=== PATIENT | female | born 1965 | race Caucasian/White ===

== ENCOUNTER 2017-03-27 04:44 | Day surgery (SDC) | payer SELFPAY ==
[~2017-03-27] VITALS: Ht 157.5 cm; Wt 58.0 kg
[~2017-03-27 04:44] MED LIST: BACLOFEN20 MG PO; IBU400 PO; LEVOTHYROXIN112 MCG PO; NEUR600 PO; NORV5 PO; TRAZ50 PO; TRILEPTAL600 MG PO
== END 2017-03-27 07:48 | disposition home or self-care (01) ==
LOC: SDC 04:44
PROVIDERS: Orthopaedic Surgery Orthopaedic Surgery of the Spine
PROC: 3E0R33Z Introduction of Anti-inflammatory into Spinal Canal, Percutaneous Approach (ICD-10-PCS; 2017-03-27)
PROC: B01BYZZ Fluoroscopy of Spinal Cord using Other Contrast (ICD-10-PCS; 2017-03-27)
PROC: 3E0R3BZ Introduction of Anesthetic Agent into Spinal Canal, Percutaneous Approach (ICD-10-PCS; principal; 2017-03-27 07:15)
DX: M54.17 Radiculopathy, lumbosacral region (principal); Z90.89 Acquired absence of other organs; Z90.710 Acquired absence of both cervix and uterus; Z79.899 Other long term (current) drug therapy; Z98.890 Other specified postprocedural states
CPT/HCPCS: J2250; J3010; Q9967